=== PATIENT | female | born 1945 | race Caucasian/White ===

== ENCOUNTER 2016-05-07 09:50 | Emergency (ER) | payer OTHER, BC ==
--- NOTE | 2016-05-07 10:05 | PDOC ---
History of Present Illness - General Chief Complaint: Cold Symptoms Stated Complaint: COUGH & CONGESTION Time Seen by Provider: 05/07/16 09:57 History Source: Patient Exam Limitations: No Limitations - History of Present Illness Initial Comments: 05/07/16 10:06 The patient is a 70-year-old female with a significant past medical history of hypertension, hyperlipidemia, coronary artery disease, cigarette smoking, remote breast cancer, who presents to the emergency department complaining of "head and chest congestion" and cough for 4 days. The cough is productive of clear sputum. She reports fever 100.9 on Monday by oral thermometer. She denied chills, sweats, myalgia. She denies dyspnea on exertion, dyspnea at rest, orthopnea, lower extremity edema. She denies chest pain, palpitations. 05/07/16 10:08 Past History - Past Medical History Allergies/Adverse Reactions: Allergies Allergy/AdvReac Type Severity Reaction Status Date / Time Penicillins Allergy Verified 05/07/16 09:59 Home Medications: Ambulatory Orders Aspirin [ASA -] 325 mg PO DAILY 03/12/14 Atorvastatin Ca [Lipitor] 20 mg PO DAILY 03/12/14 Carvedilol [Coreg] 6.25 mg PO BID 03/12/14 Clopidogrel Bisulfate [Plavix -] 75 mg PO DAILY 03/12/14 Levothyroxine [Synthroid -] 150 mcg PO DAILY 03/12/14 Albuterol Sulfate Inhaler - [Ventolin HFA Inhaler -] 2 inh IH Q4H PRN #1 inh Azithromycin [Zithromax Tri-Mauricio (3 DAYS) -] 500 mg PO DAILY #3 tablet 05/07/16 Prednisone [Deltasone -] 50 mg PO DAILY #5 tablet 05/07/16 Cancer: Yes (R BREAST) HTN: Yes Hypercholesterolemia: Yes Thyroid Disease: Yes - Psycho/Social/Smoking Cessation Hx Anxiety: No Suicidal Ideation: No Smoking History: Current every day smoker Have you smoked in the past 12 months: Yes Number of Cigarettes Smoked Daily: 15 'Breaking Loose' booklet given: 03/12/14 Hx Alcohol Use: No Substance Use Type: None Review of Systems - Review of Systems Comments:: 05/07/16 10:04 CONSTITUTIONAL: Absent: fever, chills, fatigue EYES: Absent: visual changes ENT: Present: "Nasal congestion", rhinorrhea Absent: ear pain, sore throat CARDIOVASCULAR: Absent: chest pain, palpitations, loss of consciousness RESPIRATORY: Present: Cough Absent: SOB GI: Absent: abdominal pain, nausea, vomiting, constipation, diarrhea GENITOURINARY: Absent: dysuria, frequency, hematuria MUSKULOSKELETAL: Absent: back pain, arthralgia, myalgia SKIN: Absent: rash NEURO: Absent: headache, dizziness *Physical Exam - Physical Exam Comments: 05/07/16 10:05 GENERAL: Well developed, well nourished. Awake and alert. No acute distress. HEENT: Normocephalic, atraumatic. PERRLA, EOMI. No conjunctival pallor. Sclera are non- icteric. Moist mucous membranes. Oropharynx is clear. NECK: Supple. Full ROM. No JVD. Carotid pulses 2+ and symmetric, without bruits. No thyromegaly. No lymphadenopathy. CARDIOVASCULAR: Regular rate and rhythm. No murmurs, rubs, or gallops. Distal pulses are 2+ and symmetric. PULMONARY: Imspiratory and expiratory wheezes bilaterally. Scattered faint rhonchi. No evidence of respiratory distress. No rales. ABDOMINAL: Soft. Non-tender. Non-distended. No rebound or guarding. No organomegaly. Normoactive bowel sounds. MUSCULOSKELETAL Normal range of motion at all joints. No bony deformities or tenderness. No CVA tenderness. EXTREMITIES: No cyanosis. No clubbing. No edema. No calf tenderness. SKIN: Warm and dry. Normal capillary refill. No rashes. No jaundice. NEUROLOGICAL: Alert, awake, appropriate. Cranial nerves 2-12 intact. No deficits to light touch and temperature in face, upper extremities and lower extremities. No motor deficits in the in face, upper extremities and lower extremities. Normoreflexic in the upper and lower extremities. Normal speech. Toes are down- going bilaterally. Gait is normal without ataxia. PSYCHIATRIC: Cooperative. Good eye contact. Appropriate mood and affect. 05/07/16 10:09 Medical Decision Making - Medical Decision Making 05/07/16 10:05 The patient is well-appearing and in no acute distress Vitals noted I am concerned for undiagnosed COPD, with acute exacerbation Will obtain CXR Will administer Duoneb, oral prednisone 05/07/16 10:10 05/07/16 10:43 Symptoms improved after medications Lung exam much improved Clinical impression: Acute exacerbation of undiagnosed COPD; mild Will discharge on Prevacid his own burst, short course of azithromycin, with pulmonary and primary care follow-up I discussed the physical exam findings, ancillary test results and final diagnoses with the patient. I answered all of the patient's questions. The patient was satisfied with the care received and felt comfortable with the discharge plan and treatment plan. The patient will call their primary care physician within 24 hours to arrange follow-up and will return to the Emergency Department with any new, persistent or worsening symptoms. 05/07/16 10:54 BP noted She says that it is common for her to have high BP, and these numbers are not abnormal She will follow up with her PCP There is no evidence of end organ damage *DC/Admit/Observation/Transfer Diagnosis at time of Disposition: Acute bronchitis - Discharge Dispostion Disposition: HOME Condition at time of disposition: Improved - Prescriptions Prescriptions: Prednisone [Deltasone -] 50 mg PO DAILY #5 tablet Albuterol Sulfate Inhaler - [Ventolin HFA Inhaler -] 2 inh IH Q4H PRN #1 inh PRN Reason: Short Of Breath/Wheezing Azithromycin [Zithromax Tri-Mauricio (3 DAYS) -] 500 mg PO DAILY #3 tablet - Referrals Referrals: Christian Denson MD [Staff Physician] - Call tomorrow Josep Argueta MD [Primary Care Provider] - Call tomorrow - Patient Instructions Printed Discharge Instructions: Tips to Help You Stop Smoking, DI for Viral Upper Respiratory Infection -- Adult Additional Instructions: Return to the emergency department immediately with ANY new, persistent or worsening symptoms. You MUST call and follow up with your doctor tomorrow. Please make sure your doctor reviews the results of your emergency department evaluation.
[2016-05-07 10:08] VITALS: PULSE 68; TEMP 97.6; BMI 31.8
[2016-05-07] MEDS ORDERED: ALBUTEROL SO4 2.5/IPRATROPIUM 0.5 INH SOL 3 ML VIAL.NEB. NEB ONE (10:12)
[2016-05-07] MEDS ORDERED: predniSONE 20 MG TABLET (UD) PO ONE (10:12)
[2016-05-07] MEDS ORDERED: predniSONE 20 MG TABLET (UD) ONE (10:21)
[2016-05-07] MEDS ORDERED: predniSONE 10 MG TABLET (UD) ONE (10:21)
[2016-05-07 10:54] VITALS: BP 186/90
== END 2016-05-07 11:00 | disposition home or self-care (01) ==
LOC: FER 09:50
PROC: 3E0F7GC Introduction of Other Therapeutic Substance into Respiratory Tract, Via Natural or Artificial Opening (ICD-10-PCS; principal; 2016-05-07)
DX: J20.9 Acute bronchitis, unspecified (principal); I10 Essential (primary) hypertension; E78.5 Hyperlipidemia, unspecified; I25.10 Atherosclerotic heart disease of native coronary artery without angina pectoris; F17.210 Nicotine dependence, cigarettes, uncomplicated; Z85.3 Personal history of malignant neoplasm of breast; E07.9 Disorder of thyroid, unspecified; Z79.82 Long term (current) use of aspirin
CPT/HCPCS: 71020-TC; 99281-25